=== PATIENT | male | born 1965 | race Two or more races ===

== ENCOUNTER 2016-03-02 20:24 | Inpatient (IN) | payer SELFPAY ==
[~2016-03-02] VITALS: Ht 180.3 cm; Wt 93.7 kg
[2016-03-02 21:03] LABS: Hematocrit 47.5 % (41.0-53.0); Hemoglobin 15.3 g/dL (13.5-17.5); Mean Corpuscular Hemoglobin 29.6 pg (28.0-32.0); Mean Corpuscular Hgb Conc. 32.2 g/dL (32.0-36.0); Mean Corpuscular Volume 91.9 fL (80.0-100.0); Mean Platelet Volume 8.5 fL (7.4-10.4); Platelet Count (auto) 395 10^3/uL (140-450); Red Cell Distribution Width 13.5 % (11.6-16.0); SUSPECT VIEW TRANSMISSION; White Blood Cell 18.3 10^3/uL (4.4-10.8)
[2016-03-02 21:13] LABS: Metamyelocytes % 0; Myelocytes % 0; Promyelocytes % 0; Reactive Lymphocytes 0
[2016-03-02 21:29] LABS: Albumin 2.7 g/dL (3.4-5.0); Calcium 8.9 mg/dL (8.5-10.1); Potassium 4.3 mmol/L (3.5-5.1)
[2016-03-02 21:30] LABS: BUN/Creatinine Ratio 14.7
[2016-03-02 21:32] LABS: Bilirubin, Total 0.7 mg/dL (0.2-1.0); Total Protein 9.1 g/dL (6.4-8.2)
[2016-03-02] MEDS ORDERED: SODIUM CHLORIDE 0.9% 1,000 ML IV ONE ×3 (21:44→23:07)
[2016-03-02] MEDS ORDERED: VANCOMYCIN 1GM/250ML D5W 250 ML IV ONE (21:45)
[2016-03-02] MEDS ORDERED: PIPERACILLIN-TAZOB 3.375GM 100 ML IV ONE (21:45)
[2016-03-02] MEDS ORDERED: InsuLIN REG 1unit/0.01ml Soln (100units/ml) IV ONE ×2 (22:00→23:00)
[2016-03-02 22:01] LABS: Anisocytosis Slight; Platelet Estimate Adequate
[2016-03-02] MEDS ORDERED: ONDANSETRON HCL 4 MG/2 ML VIAL IV ONE (22:30)
[2016-03-02] MEDS ORDERED: MORPHINE SULFATE 4 MG/ML SYRG IV ONE (22:30)
[2016-03-02] MEDS ORDERED: SODIUM CHLORIDE 0.9% 250 ML IV ONE (23:07)
[2016-03-02] MEDS ORDERED: ACETAMINOPHEN 325 MG TAB PO ONE (23:30)
[2016-03-02] MEDS ORDERED: ACETAMINOPHEN 500 MG TAB PO ONE (23:45)
[2016-03-03] VITALS (7 sets, daily range): BP systolic 123–135; BP diastolic 73–78
[2016-03-03] MEDS: SODIUM CHLORIDE 0.9% 1,000 ML IV SCH ×2 (00:01→11:31)
[2016-03-03] MEDS ORDERED: ONDANSETRON HCL 4 MG/2 ML VIAL IV PRN (00:15)
[2016-03-03] MEDS ORDERED: DEXTROSE (50%) 50ML SYRG IV PRN (00:15)
[2016-03-03] MEDS ORDERED: ACETAMINOPHEN 325 MG TAB PO PRN (00:15)
[2016-03-03] MEDS ORDERED: HYDROcodone-ACET 5/325MG TAB PO PRN (00:15)
[2016-03-03] MEDS: cefTRIAXone 1GM/50ML D5W 50 ML IV SCH (01:30)
[2016-03-03] MEDS ORDERED: LEVEMIR SC (02:40)
[2016-03-03] MEDS ORDERED: LIRA18IN2 SUBCUT (02:40)
[2016-03-03] MEDS ORDERED: GLIM4TAB42 PO (02:40)
[2016-03-03] MEDS ORDERED: CANA300T PO (02:40)
[2016-03-03] MEDS: ACCU-CHEK COMFORT CURVE STRIP VI SCH ×5 (03:32→21:04)
[2016-03-03] MEDS: InsuLIN REG 1unit/0.01ml Soln (100units/ml) SC SCH ×5 (03:32→21:07)
[2016-03-03] MEDS ORDERED: INFLUENZA QUAD 2016-2017 0.5 ML SYRG IM ONE (04:00)
[2016-03-03] MEDS ORDERED: PNEUMOCOCCAL VACC POLYS 25 MCG/0.5 ML VIAL IM ONE (04:00)
[2016-03-03] MEDS: MORPHINE SULF INJ 2 MG/ML SYRINGE 1ML IV PRN (06:37)
[2016-03-03] MEDS: VANCOMYCIN 1GM/250ML D5W 250 ML IV SCH ×2 (08:11→16:14)
[2016-03-03] MEDS: FAMOTIDINE 20 MG TAB PO SCH ×2 (09:49→21:07)
[2016-03-03] MEDS: ENOXAPARIN SOD 40 MG/0.4 ML SYRINGE SC SCH (09:49)
[2016-03-03] MEDS ORDERED: ENOXAPARIN SOD 30 MG/0.3 ML SYRINGE SC SCH (10:00)
[2016-03-03] MEDS ORDERED: VANCOMYCIN PER PHARMACY 0 MG IV SCH (10:00)
[2016-03-04] MEDS: ACCU-CHEK COMFORT CURVE STRIP VI SCH ×6 (00:07→22:00)
[2016-03-04] MEDS: VANCOMYCIN 1GM/250ML D5W 250 ML IV SCH ×4 (00:08→23:35)
[2016-03-04] MEDS: cefTRIAXone 1GM/50ML D5W 50 ML IV SCH (01:00)
[2016-03-04] MEDS: SODIUM CHLORIDE 0.9% 1,000 ML IV SCH ×2 (01:01→13:31)
[2016-03-04 05:00] VITALS: BP 121/75
[2016-03-04] MEDS: InsuLIN REG 1unit/0.01ml Soln (100units/ml) SC SCH ×6 (05:10→23:28)
[2016-03-04 05:51] LABS: Basophils # (auto) 0.1 uL; Basophils % (auto) 0.8 % (0.0-2.0); DEFINITIVE VIEW TRANSMISSION; Eosinophils # (auto) 0 uL; Eosinophils % (auto) 0.2 % (0.0-7.0); Hemoglobin 12.9 g/dL (13.5-17.5); Lymphocytes # (auto) 1.3 uL; Lymphocytes % (auto) 8.1 % (10.0-50.0); Mean Corpuscular Hemoglobin 29.9 pg (28.0-32.0); Mean Corpuscular Hgb Conc. 32.4 g/dL (32.0-36.0); Mean Corpuscular Volume 92.4 fL (80.0-100.0); Mean Platelet Volume 8.9 fL (7.4-10.4); Monocytes # (auto) 1.7 uL; Monocytes % (auto) 10.2 % (0.0-12.0); Neutrophils # (auto) 13.2 uL; Neutrophils % (auto) 80.7 % (37.0-80.0); Platelet Count (auto) 341 10^3/uL (140-450); Red Cell Distribution Width 13.4 % (11.6-16.0); White Blood Cell 16.4 10^3/uL (4.4-10.8)
[2016-03-04 06:24] LABS: BUN/Creatinine Ratio 15.8; Magnesium 2.2 mg/dL (1.6-2.6); Potassium 3.5 mmol/L (3.5-5.1)
[2016-03-04 08:31] VITALS: BP 118/63
[2016-03-04] MEDS: FAMOTIDINE 20 MG TAB PO SCH ×2 (09:29→22:18)
[2016-03-04] MEDS: ENOXAPARIN SOD 40 MG/0.4 ML SYRINGE SC SCH (09:29)
[2016-03-04] MEDS: MORPHINE SULF INJ 2 MG/ML SYRINGE 1ML IV PRN ×2 (12:14→23:29)
[2016-03-04 12:56] VITALS: BP 119/75
[2016-03-04] MEDS ORDERED: DEXTROSE (50%) 50ML SYRG IV PRN (13:45)
[2016-03-04 16:55] VITALS: BP 115/63
[2016-03-04] MEDS: MULTIPLE VITAMINS W/ MINERALS TAB PO SCH (18:49)
[2016-03-04 22:00] VITALS: BP 122/76
[2016-03-04] MEDS: ASCORBIC ACID 500 MG TAB PO SCH (22:17)
[2016-03-04] MEDS: INSULIN DETEMIR(LEVEMIR) 1unit/0.01ml Soln (100units/ml) SC SCH (23:27)
[2016-03-05] MEDS: cefTRIAXone 1GM/50ML D5W 50 ML IV SCH (01:48)
[2016-03-05] MEDS: SODIUM CHLORIDE 0.9% 1,000 ML IV SCH ×2 (03:28→17:55)
[2016-03-05 05:30] VITALS: BP 129/83
[2016-03-05 05:58] LABS: Basophils # (auto) 0.2 uL; Basophils % (auto) 1.3 % (0.0-2.0); Eosinophils # (auto) 0.1 uL; Hematocrit 37.5 % (41.0-53.0); Hemoglobin 12.2 g/dL (13.5-17.5); Lymphocytes # (auto) 1.3 uL; Lymphocytes % (auto) 9.9 % (10.0-50.0); Mean Corpuscular Hemoglobin 29.8 pg (28.0-32.0); Mean Corpuscular Hgb Conc. 32.5 g/dL (32.0-36.0); Mean Corpuscular Volume 91.7 fL (80.0-100.0); Mean Platelet Volume 8.9 fL (7.4-10.4); Monocytes # (auto) 1.5 uL; Monocytes % (auto) 11.4 % (0.0-12.0); Neutrophils # (auto) 9.9 uL; Neutrophils % (auto) 76.4 % (37.0-80.0); Platelet Count (auto) 342 10^3/uL (140-450); Red Cell Distribution Width 13.7 % (11.6-16.0)
[2016-03-05 06:47] LABS: BUN/Creatinine Ratio 16.1; Calcium 7.7 mg/dL (8.5-10.1); Potassium 3.6 mmol/L (3.5-5.1)
[2016-03-05] MEDS: InsuLIN REG 1unit/0.01ml Soln (100units/ml) SC SCH ×4 (07:11→21:52)
[2016-03-05] MEDS: ACCU-CHEK COMFORT CURVE STRIP VI SCH ×4 (07:12→21:48)
[2016-03-05] MEDS: VANCOMYCIN 1GM/250ML D5W 250 ML IV SCH ×2 (08:00→17:43)
[2016-03-05 08:31] LABS: Partial Thromboplastin Time 29.3 sec (22.64-33.71)
[2016-03-05 08:34] LABS: INR 1.2 (0.9-1.15); Prothrombin Time 12.4 sec (9.37-12.3)
[2016-03-05] MEDS ORDERED: ceFAZolin 1GM/50ML D5W 50 ML IV ONE (09:07)
[2016-03-05 09:10] VITALS: BP 118/64
[2016-03-05] MEDS: ASCORBIC ACID 500 MG TAB PO SCH ×2 (10:00→21:40)
[2016-03-05] MEDS: MULTIPLE VITAMINS W/ MINERALS TAB PO SCH (10:00)
[2016-03-05] MEDS: ENOXAPARIN SOD 40 MG/0.4 ML SYRINGE SC SCH (10:00)
[2016-03-05] MEDS: FAMOTIDINE 20 MG TAB PO SCH ×2 (10:00→21:40)
[2016-03-05] MEDS ORDERED: METOCLOPRAMIDE HCL 5MG/ml INJ 2ml VIAL ONE (12:31)
[2016-03-05] MEDS ORDERED: PROPOFOL 10 MG/ML 20 ML IV ONE (12:31)
[2016-03-05] MEDS ORDERED: fentaNYL CITRATE 100 MCG/2 ML VL ONE (12:31)
[2016-03-05] MEDS ORDERED: MIDAZOLAM HCL 1MG/1ML-2 ML VIAL ONE (12:31)
[2016-03-05] MEDS ORDERED: SODIUM CHLORIDE LOCK 10 ML ONE (12:31)
[2016-03-05] MEDS ORDERED: ceFAZolin 1GM VL ONE ×2 (13:04→13:11)
[2016-03-05 17:25] VITALS: BP 147/85
[2016-03-05 20:38] VITALS: BP 122/70
[2016-03-05] MEDS: MORPHINE SULF INJ 2 MG/ML SYRINGE 1ML IV PRN (20:41)
[2016-03-05] MEDS: INSULIN DETEMIR(LEVEMIR) 1unit/0.01ml Soln (100units/ml) SC SCH (22:00)
[2016-03-06] MEDS: VANCOMYCIN 1GM/250ML D5W 250 ML IV SCH ×2 (00:07→08:07)
[2016-03-06] MEDS: MORPHINE SULF INJ 2 MG/ML SYRINGE 1ML IV PRN ×3 (00:43→09:13)
[2016-03-06] MEDS: cefTRIAXone 1GM/50ML D5W 50 ML IV SCH (02:10)
[2016-03-06 04:33] VITALS: BP 122/56
[2016-03-06] MEDS: SODIUM CHLORIDE 0.9% 1,000 ML IV SCH ×2 (04:58→15:35)
[2016-03-06] MEDS: ACCU-CHEK COMFORT CURVE STRIP VI SCH ×2 (06:42→11:30)
[2016-03-06] MEDS: InsuLIN REG 1unit/0.01ml Soln (100units/ml) SC SCH ×2 (07:00→11:30)
[2016-03-06 09:00] VITALS: BP 129/71
[2016-03-06] MEDS: ASCORBIC ACID 500 MG TAB PO SCH (10:13)
[2016-03-06] MEDS: ENOXAPARIN SOD 40 MG/0.4 ML SYRINGE SC SCH (10:13)
[2016-03-06] MEDS: MULTIPLE VITAMINS W/ MINERALS TAB PO SCH (10:13)
[2016-03-06] MEDS: FAMOTIDINE 20 MG TAB PO SCH (10:14)
[2016-03-06 13:00] VITALS: BP 139/82
[2016-03-06] MEDS ORDERED: AMOXICILLIN & POT CLAVULANATE 875 MG TAB PO SCH (13:20)
[2016-03-06] MEDS ORDERED: AMOX-277 PO (15:12)
[2016-03-06 16:08] LABS: BUN/Creatinine Ratio 16.1; Calcium 8.1 mg/dL (8.5-10.1); Potassium 3.6 mmol/L (3.5-5.1)
[2016-03-06 16:16] LABS: Basophils # (auto) 0.2 uL; Basophils % (auto) 2.1 % (0.0-2.0); Eosinophils # (auto) 0.3 uL; Eosinophils % (auto) 2.4 % (0.0-7.0); Hemoglobin 12.2 g/dL (13.5-17.5); Lymphocytes # (auto) 1.3 uL; Lymphocytes % (auto) 12.1 % (10.0-50.0); Mean Corpuscular Hemoglobin 29.5 pg (28.0-32.0); Mean Corpuscular Hgb Conc. 32.1 g/dL (32.0-36.0); Mean Corpuscular Volume 91.8 fL (80.0-100.0); Mean Platelet Volume 8.9 fL (7.4-10.4); Monocytes # (auto) 1.2 uL; Monocytes % (auto) 11.4 % (0.0-12.0); Neutrophils # (auto) 7.7 uL; Platelet Count (auto) 381 10^3/uL (140-450); Red Cell Distribution Width 14.1 % (11.6-16.0); White Blood Cell 10.7 10^3/uL (4.4-10.8)
[2016-03-06 16:31] VITALS: BP 129/71
[2016-03-06 17:00] VITALS: BP 117/65
[2016-03-07] MEDS ORDERED: GLIMEPIRIDE 2 MG TAB PO SCH (07:00)
== END 2016-03-06 17:20 | disposition home or self-care (01) | DRG 871 ==
LOC: ER 20:29 → OVERFLOW 20:30 → WEST WING 03-03 01:14
PROVIDERS: ADMIT Nurse Practitioner; ATTEND Internal Medicine
PROC: 0Y9M0ZX Drainage of Right Foot, Open Approach, Diagnostic (ICD-10-PCS; principal; 2016-03-05 13:10)
DX: A41.9 Sepsis, unspecified organism (principal); E43 Unspecified severe protein-calorie malnutrition; L03.115 Cellulitis of right lower limb; L02.611 Cutaneous abscess of right foot; L97.419 Non-pressure chronic ulcer of right heel and midfoot with unspecified severity; T25.021A Burn of unspecified degree of right foot, initial encounter; E11.621 Type 2 diabetes mellitus with foot ulcer; E11.65 Type 2 diabetes mellitus with hyperglycemia; Z68.28 Body mass index [BMI] 28.0-28.9, adult; Z83.3 Family history of diabetes mellitus; Z80.9 Family history of malignant neoplasm, unspecified; Z79.899 Other long term (current) drug therapy; Z23 Encounter for immunization
CPT/HCPCS: 36415; 73700; 80048; 80053; 80061; 80202; 82962; 83036; 83605; 83735; 85007; 85025; 85027; 85049; 85379; 85610; 85730; 87040; 87070; 87075; 87076; 87077; 87186; 87205; 96361; 96374; 96375; J0690; J0696; J1815; J2250; J2405; J2543; J2704

== ENCOUNTER 2023-09-13 19:11 | Emergency (ER) | payer OTHER ==
[~2023-09-13] VITALS: Ht 180.3 cm; Wt 87.0 kg
[~2023-09-13 19:11] MED LIST: AMOX875T4 PO; CANA300T PO; GLIM4TAB42 PO; LEVEMIR SC; LIRA18IN2 SUBCUT
[2023-09-13 19:34] VITALS: BP 130/82; PULSE 112; RESP 16; O2SAT 98
[2023-09-13] MEDS ORDERED: AMOX875T4 PO (20:48)
[2023-09-13] MEDS: TETANUS-DIPTH-ACEL PERTUSSIS 0.5ML SYR Tdap IM ONE (21:00)
== END 2023-09-13 21:12 | disposition home or self-care (01) ==
LOC: ER 19:11
DX: S01.511A Laceration without foreign body of lip, initial encounter (principal); E11.9 Type 2 diabetes mellitus without complications; Z79.899 Other long term (current) drug therapy; Z79.4 Long term (current) use of insulin; W01.0XXA Fall on same level from slipping, tripping and stumbling without subsequent striking against object, initial encounter; Y93.89 Activity, other specified; Y92.89 Other specified places as the place of occurrence of the external cause; Y99.8 Other external cause status
CPT/HCPCS: 12011; 90471; 90715